=== PATIENT | male | born 2000 | race Hispanic/Latino ===

== ENCOUNTER 2023-02-07 12:35 | Emergency (ER) | payer OTHER ==
[~2023-02-07] VITALS: Ht 188 cm; Wt 124.9 kg
[~2023-02-07 12:35] MED LIST: NAPROSYN500 MG PO
[2023-02-07] MEDS ORDERED: KETOROLAC TROMETHAMINE 30 MG/ML VIAL IV STA (13:05)
[2023-02-07] MEDS ORDERED: KETOROLAC TROMETHAMINE 30 MG/ML VIAL ONE (13:25)
[2023-02-07] MEDS ORDERED: IOPAMIDOL 370 MG/ML 100 ML INFUS..BTL INJ ONE (13:30)
[2023-02-07] MEDS ORDERED: METOPROLOL TART25 MG PO (13:34)
[2023-02-07] MEDS ORDERED: IBUPROFEN600 MG PO (14:50)
[2023-02-07 15:13] VITALS: O2SAT 100
== END 2023-02-07 15:13 | disposition home or self-care (01) ==
LOC: FSED 12:38
DX: R06.00 Dyspnea, unspecified (principal); R07.89 Other chest pain; M54.6 Pain in thoracic spine; W11.XXXA Fall on and from ladder, initial encounter; Y92.89 Other specified places as the place of occurrence of the external cause; Z96.641 Presence of right artificial hip joint
CPT/HCPCS: 71046; 71260; 74177; 80053; 82553; 84484; 85025; 96374; 99284; J1885; Q9967; 93005